=== PATIENT | male | born 1980 | race Hispanic/Latino ===

== ENCOUNTER 2018-06-17 11:16 | Inpatient (IN) | payer OTHER ==
[~2018-06-17] VITALS: Ht 188 cm; Wt 130.0 kg
[2018-06-17] MEDS ORDERED: SODIUM CHLORIDE 0.9% 1000ML 3,000 ML IV ONE (12:08)
[2018-06-17] MEDS ORDERED: ACETAMINOPHEN EXTRA STRENGTH 500 MG TABLET ONE (12:09)
[2018-06-17 12:13] LABS: BASOPHILS % (AUTO) 0.5 % (0.0-5.0); HEMATOCRIT 42.4 % (42-54); LYMPHOCYTES % (AUTO) 15.7 % (21.0-51.0); MEAN CORPUSCULAR HEMOGLOBIN 29.6 pg (27.0-33.0); MEAN CORPUSCULAR HGB CONC 35.1 g/dL (32.0-36.0); MEAN CORPUSCULAR VOLUME 84.3 fL (79-99); MONOCYTES % (AUTO) 6.3 % (3.0-13.0); NEUTROPHILS % (AUTO) 76.5 % (40.0-77.0); PLATELET COUNT (AUTO) 227 K/uL (130-400); RED BLOOD CELL COUNT(AUTO) 5.02 MIL/uL (4.50-6.20); RED CELL DISTRIBUTION WIDTH 13.1 % (11.0-15.5); WHITE BLOOD COUNT (AUTO) 10.5 K/uL (4.8-10.8)
[2018-06-17 12:21] LABS: CARBON DIOXIDE 26 mmol/L (21-32); CHLORIDE 98 mmol/L (101-111); GLOMERULAR FILTR. RATE CALC 89 mL/min (>60); GLUCOSE,RANDOM 300 mg/dL (70-105); POTASSIUM 3.8 mmol/L (3.5-5.1); SODIUM SERUM 132 mmol/L (136-145); UREA NITROGEN, BLOOD 8 mg/dL (7-18)
[2018-06-17] MEDS ORDERED: VANCOMYCIN 1GM+NS 250ML 250 ML IV ONE ×2 (12:32→14:21)
[2018-06-17 12:44] LABS: ACETONE,BLOOD NEGATIVE (NEGATIVE)
[2018-06-17 12:45] LABS: ALANINE AMINOTRANSFERASE 34 U/L (12-78); ALBUMIN 3.5 g/dL (3.5-5.0); ASPARTATE AMINOTRANSFERASE 11 U/L (10-37); TOTAL PROTEIN, SERUM 8.5 g/dL (6.0-8.3)
[2018-06-17] MEDS ORDERED: MORPHINE SULFATE 4 MG/1ML SYG IV PRN (13:30)
[2018-06-17] MEDS ORDERED: LACTULOSE 20 GM/30 ML UDCUP PO PRN (13:30)
[2018-06-17] MEDS ORDERED: MORPHINE SULFATE 2 MG/ML 1ML SYG IV PRN (13:30)
[2018-06-17] MEDS ORDERED: VANCOMYCIN PROTOCOL PER PHARMACY IV PRN (13:30)
[2018-06-17] MEDS ORDERED: ONDANSETRON HCL 4 MG/2 ML VIAL IV PRN (13:30)
[2018-06-17] MEDS ORDERED: HYDRALAZINE HCL 20 MG/ML VIAL IV PRN (13:30)
[2018-06-17] MEDS ORDERED: MAG HYDROX/AL HYDROX/SIMETH ES 30 ML SUSP UDCUP PO PRN (13:30)
[2018-06-17] MEDS ORDERED: ZOLPIDEM TARTRATE 5 MG TAB PO PRN (13:30)
[2018-06-17] MEDS ORDERED: COMPOUND IV REFRIGERATED 1 EACH IVSOLN MISC PRN (14:15)
[2018-06-17 14:30] LABS: HEMOGLOBIN A1C 10.5 % (4.0-6.0)
[2018-06-17] MEDS: VANCOMYCIN 2 GM in SODIUM CHLORIDE 0.9% 500ML 500 ML IV SCH (15:00)
[2018-06-17] MEDS ORDERED: INSULIN LISPRO 100 UNIT/ML 3ML SQ SCH (17:00)
[2018-06-17 17:14] VITALS: BP 134/76
[2018-06-17] MEDS: SODIUM CHLORIDE 0.9% 1000ML 1,000 ML IV SCH ×2 (18:01→22:30)
[2018-06-17 19:44] VITALS: BP 133/57
[2018-06-17] MEDS: ZOSYN 3.375GM+NS 50ML 50 ML IV SCH ×2 (20:07→20:26)
[2018-06-17] MEDS: METOPROLOL TARTRATE 25 MG TAB PO SCH (20:26)
[2018-06-17] MEDS: INSULIN GLARGINE 100 UNITS/ML 10 ML VIAL SQ SCH (20:31)
[2018-06-17] MEDS: INSULIN HUMULIN R 100 UNIT/ML 3ML SQ SCH (20:32)
[2018-06-17] MEDS ORDERED: METF-446 PO (22:34)
[2018-06-17] MEDS ORDERED: TRAM50TA4 PO (22:34)
[2018-06-17 23:35] VITALS: BP 137/80
[2018-06-18] MEDS: VANCOMYCIN 2 GM in SODIUM CHLORIDE 0.9% 500ML 500 ML IV SCH ×2 (02:46→15:07)
[2018-06-18] MEDS: ACETAMINOPHEN 325 MG TAB PO PRN ×2 (03:24→10:34)
[2018-06-18 03:43] VITALS: BP 145/93
[2018-06-18 04:41] LABS: HEMATOCRIT 38.1 % (42-54); MEAN CORPUSCULAR HGB CONC 34.6 g/dL (32.0-36.0); MEAN CORPUSCULAR VOLUME 83.8 fL (79-99); NUCLEATED RED BLOOD CELLS 0.1 % (0.0-0.19); PLATELET COUNT (AUTO) 196 K/uL (130-400); RED BLOOD CELL COUNT(AUTO) 4.55 MIL/uL (4.50-6.20); RED CELL DISTRIBUTION WIDTH 12.9 % (11.0-15.5); WHITE BLOOD COUNT (AUTO) 7.9 K/uL (4.8-10.8)
[2018-06-18] MEDS: ZOSYN 3.375GM+NS 50ML 50 ML IV SCH ×3 (04:46→21:25)
[2018-06-18 04:55] LABS: CREATININE 0.8 mg/dL (0.5-1.5); CRP QUANTITATIVE 158.8 mg/L (0.00-9.0); POTASSIUM 3.6 mmol/L (3.5-5.1)
[2018-06-18] MEDS: INSULIN HUMULIN R 100 UNIT/ML 3ML SQ SCH ×4 (06:33→21:27)
[2018-06-18] MEDS: METFORMIN HCL 500 MG TABLET PO SCH ×6 (08:00→17:25)
[2018-06-18 08:34] VITALS: BP 124/75
[2018-06-18] MEDS: PANTOPRAZOLE SODIUM 40 MG TABLET.DR PO SCH (10:33)
[2018-06-18] MEDS: METOPROLOL TARTRATE 25 MG TAB PO SCH ×2 (10:33→21:25)
[2018-06-18] MEDS: LINAGLIPTIN 5 MG TABLET PO SCH (10:34)
[2018-06-18] MEDS ORDERED: GADODIAMIDE 10 MMOL/20 ML ML IV ONE (10:59)
[2018-06-18] MEDS: ENOXAPARIN SODIUM 40 MG/0.4 ML SYRINGE SQ SCH (11:49)
[2018-06-18] MEDS ORDERED: DIPH,PERTUSS(ACELL),TET VAC/PF 0.5 ML VIAL IM SCH (12:45)
[2018-06-18] MEDS: SODIUM CHLORIDE 0.9% 1000ML 1,000 ML IV SCH ×2 (12:57→21:28)
[2018-06-18 14:01] VITALS: BP 116/66
[2018-06-18 16:39] VITALS: BP 122/83
[2018-06-18 20:02] VITALS: BP 114/65
[2018-06-18] MEDS: INSULIN GLARGINE 100 UNITS/ML 10 ML VIAL SQ SCH (21:26)
[2018-06-18 23:44] VITALS: BP 126/73
[2018-06-19] MEDS: VANCOMYCIN 2 GM in SODIUM CHLORIDE 0.9% 500ML 500 ML IV SCH ×2 (02:55→16:11)
[2018-06-19 03:58] VITALS: BP 131/85
[2018-06-19] MEDS: ZOSYN 3.375GM+NS 50ML 50 ML IV SCH ×3 (04:54→20:22)
[2018-06-19] MEDS: SODIUM CHLORIDE 0.9% 1000ML 1,000 ML IV SCH ×2 (05:23→17:21)
[2018-06-19 05:33] LABS: BASOPHILS % (AUTO) 0.7 % (0.0-5.0); EOSINOPHILS % (AUTO) 2.1 % (0.0-8.0); HEMATOCRIT 38.1 % (42-54); LYMPHOCYTES % (AUTO) 28.6 % (21.0-51.0); MEAN CORPUSCULAR HEMOGLOBIN 29.8 pg (27.0-33.0); MEAN CORPUSCULAR HGB CONC 35.2 g/dL (32.0-36.0); MEAN CORPUSCULAR VOLUME 84.7 fL (79-99); NEUTROPHILS % (AUTO) 61.6 % (40.0-77.0); PLATELET COUNT (AUTO) 270 K/uL (130-400); RED CELL DISTRIBUTION WIDTH 12.9 % (11.0-15.5); WHITE BLOOD COUNT (AUTO) 6.4 K/uL (4.8-10.8)
[2018-06-19 05:42] LABS: CREATININE 0.8 mg/dL (0.5-1.5); POTASSIUM 3.6 mmol/L (3.5-5.1)
[2018-06-19] MEDS: INSULIN HUMULIN R 100 UNIT/ML 3ML SQ SCH ×4 (06:11→21:00)
[2018-06-19 06:55] LABS: ERYTHROCYTE SEDIMENTATION RATE 62 MM/HR (0-15)
[2018-06-19 08:00] VITALS: BP 127/79
[2018-06-19] MEDS: METFORMIN HCL 500 MG TABLET PO SCH ×6 (08:00→17:19)
[2018-06-19] MEDS: PANTOPRAZOLE SODIUM 40 MG TABLET.DR PO SCH (08:50)
[2018-06-19] MEDS: LINAGLIPTIN 5 MG TABLET PO SCH (08:50)
[2018-06-19] MEDS: METOPROLOL TARTRATE 25 MG TAB PO SCH ×2 (08:50→20:22)
[2018-06-19] MEDS: ENOXAPARIN SODIUM 40 MG/0.4 ML SYRINGE SQ SCH (08:57)
[2018-06-19 12:02] VITALS: BP 124/74
[2018-06-19 16:00] VITALS: BP 133/61
[2018-06-19] MEDS: ACETAMINOPHEN 325 MG TAB PO PRN (16:16)
[2018-06-19 19:36] VITALS: BP 104/57
[2018-06-19] MEDS: INSULIN GLARGINE 100 UNITS/ML 10 ML VIAL SQ SCH (21:12)
[2018-06-19 23:45] VITALS: BP 123/80
[2018-06-20] MEDS: SODIUM CHLORIDE 0.9% 1000ML 1,000 ML IV SCH (00:50)
[2018-06-20] MEDS: VANCOMYCIN 2 GM in SODIUM CHLORIDE 0.9% 500ML 500 ML IV SCH ×2 (02:58→17:04)
[2018-06-20 03:49] VITALS: BP 129/80
[2018-06-20] MEDS: ZOSYN 3.375GM+NS 50ML 50 ML IV SCH ×2 (04:46→12:37)
[2018-06-20 05:40] LABS: BASOPHILS % (AUTO) 0.5 % (0.0-5.0); EOSINOPHILS % (AUTO) 2.9 % (0.0-8.0); HEMATOCRIT 38.8 % (42-54); LYMPHOCYTES % (AUTO) 30.4 % (21.0-51.0); MEAN CORPUSCULAR HEMOGLOBIN 29.1 pg (27.0-33.0); MEAN CORPUSCULAR HGB CONC 33.9 g/dL (32.0-36.0); MONOCYTES % (AUTO) 8.8 % (3.0-13.0); NEUTROPHILS % (AUTO) 57.4 % (40.0-77.0); PLATELET COUNT (AUTO) 245 K/uL (130-400); RED BLOOD CELL COUNT(AUTO) 4.52 MIL/uL (4.50-6.20); WHITE BLOOD COUNT (AUTO) 6.2 K/uL (4.8-10.8)
[2018-06-20 05:52] LABS: CREATININE 0.8 mg/dL (0.5-1.5); POTASSIUM 3.4 mmol/L (3.5-5.1)
[2018-06-20] MEDS: INSULIN HUMULIN R 100 UNIT/ML 3ML SQ SCH ×3 (06:39→16:30)
[2018-06-20 07:30] VITALS: BP 117/73
[2018-06-20] MEDS: METFORMIN HCL 500 MG TABLET PO SCH ×6 (08:00→17:03)
[2018-06-20] MEDS: PANTOPRAZOLE SODIUM 40 MG TABLET.DR PO SCH (09:00)
[2018-06-20] MEDS: ENOXAPARIN SODIUM 40 MG/0.4 ML SYRINGE SQ SCH (09:36)
[2018-06-20] MEDS: LINAGLIPTIN 5 MG TABLET PO SCH (09:36)
[2018-06-20] MEDS: METOPROLOL TARTRATE 25 MG TAB PO SCH (09:36)
[2018-06-20 11:00] VITALS: BP 134/78
[2018-06-20 16:00] VITALS: BP 129/76
[2018-06-20] MEDS ORDERED: AMOX500C2 PO (17:35)
[2018-06-20] MEDS ORDERED: DOXY100T2 PO (17:36)
== END 2018-06-20 18:44 | disposition home or self-care (01) | DRG 623 ==
LOC: EDH 11:16 → EDHIP 13:29 → 3BH 17:08
PROVIDERS: ADMIT Internal Medicine; ATTEND Internal Medicine
PROC: 0JBR0ZZ Excision of Left Foot Subcutaneous Tissue and Fascia, Open Approach (ICD-10-PCS; principal; 2018-06-17)
PROC: 3E0234Z Introduction of Serum, Toxoid and Vaccine into Muscle, Percutaneous Approach (ICD-10-PCS; 2018-06-18)
DX: E11.621 Type 2 diabetes mellitus with foot ulcer (principal); L03.116 Cellulitis of left lower limb; L02.612 Cutaneous abscess of left foot; E22.2 Syndrome of inappropriate secretion of antidiuretic hormone; E11.40 Type 2 diabetes mellitus with diabetic neuropathy, unspecified; L97.529 Non-pressure chronic ulcer of other part of left foot with unspecified severity; E11.65 Type 2 diabetes mellitus with hyperglycemia; E11.618 Type 2 diabetes mellitus with other diabetic arthropathy; E66.01 Morbid (severe) obesity due to excess calories; L84 Corns and callosities; B95.2 Enterococcus as the cause of diseases classified elsewhere; B95.62 Methicillin resistant Staphylococcus aureus infection as the cause of diseases classified elsewhere; J45.20 Mild intermittent asthma, uncomplicated; Z68.36 Body mass index [BMI] 36.0-36.9, adult; Z82.49 Family history of ischemic heart disease and other diseases of the circulatory system; Z83.3 Family history of diabetes mellitus; Z82.5 Family history of asthma and other chronic lower respiratory diseases; Z88.6 Allergy status to analgesic agent; Z79.4 Long term (current) use of insulin; Z23 Encounter for immunization
CPT/HCPCS: 36415; 73630; 73720; 80048; 80053; 80202; 80339; 82009; 82948; 83036; 83605; 85025; 85027; 85651; 86140; 87040; 87070; 87076; 87077; 87186; 90715; 97039; A9579; J1650; J1815; J2543; J3370; J7030; J7040